=== PATIENT | male | born 1960 | race African-American/Black ===

== ENCOUNTER 2021-05-03 08:46 | Emergency (ER) | payer OTHER ==
[~2021-05-03] VITALS: Ht 180.3 cm; Wt 95.5 kg
[2021-05-03 08:57] VITALS: BP 129/73
--- NOTE | 2021-05-03 09:50 | NUR ---
assumed care of pt. pt here for pain and swelling to LFA after being Dx with DVT to arm and leaving previosu facility AMA pt here for pain control. pt advised that he is to be medicated for pain and that he should not drive aftre medication. pt verbalized understanding pt requesting Rx for lasix, pt states that he is here from [place] and forgot his medications at home. Wilfred BUSTAMANTE notified
[2021-05-03] MEDS ORDERED: OXYcodone/APAP 10/325MG TABLET ONE (09:54)
[2021-05-03] MEDS ORDERED: MORPHINE SULFATE 4 MG/ML, 1ML IVPush PRN (10:00)
[2021-05-03] MEDS ORDERED: SODIUM CHLORIDE FLUSH 10ML SYR IVF ONE (10:00)
[2021-05-03] MEDS ORDERED: ONDANSETRON 2MG/ML, 2ML IVPush ONE (10:00)
[2021-05-03] MEDS ORDERED: OXYcodone/APAP 10/325MG TABLET PO ONE (10:00)
== END 2021-05-03 10:58 | disposition home or self-care (01) ==
LOC: ED 10:55
DX: M79.622 Pain in left upper arm (principal); M79.632 Pain in left forearm; R06.02 Shortness of breath; I48.91 Unspecified atrial fibrillation; I44.7 Left bundle-branch block, unspecified; I50.9 Heart failure, unspecified; Z86.718 Personal history of other venous thrombosis and embolism
CPT/HCPCS: 93005; 99283